=== PATIENT | female | born 1985 | race Caucasian/White ===

== ENCOUNTER 2020-10-29 18:59 | Emergency (ER) | payer OTHER ==
[~2020-10-29 18:59] MED LIST: IBUPROFEN600 MG PO; PRENATAL VITAM1 EAC5 PO; ZANTAC150 MG PO
[2020-10-29] MEDS ORDERED: COMFORT PAC-CYC10 MG PO (21:33)
[2020-10-29] MEDS ORDERED: TORADOL 10 MG T10 MG PO (21:33)
== END 2020-10-29 21:50 | disposition home or self-care (01) ==
LOC: ER1 18:59
DX: S39.012A Strain of muscle, fascia and tendon of lower back, initial encounter (principal); Z90.49 Acquired absence of other specified parts of digestive tract; Z90.89 Acquired absence of other organs; X50.9XXA Other and unspecified overexertion or strenuous movements or postures, initial encounter
CPT/HCPCS: 72131; 81001; 84703; 96372; 99284; J1885

== ENCOUNTER → 2021-11-07 | Outpatient (CLI) | payer BC ==
[~2021-11-07] MED LIST changes: +COMFORT PAC-CYC10 MG PO; +CYCLOBENZAPRINE10 MG PO; +TORADOL 10 MG T10 MG PO
== END ==
LOC: MRI 10:21
DX: M25.561 Pain in right knee (principal)
CPT/HCPCS: 73721